=== PATIENT | female | born 1975 | race Caucasian/White ===

== ENCOUNTER 2018-07-22 22:18 | Emergency (ER) | payer SELFPAY ==
[2018-07-22 22:32] VITALS: BMI 23.4
--- NOTE | 2018-07-23 00:14 | PDOC ---
History of Present Illness - General History Source: Patient Exam Limitations: No Limitations - History of Present Illness Initial Comments: 07/23/18 01:32 The patient is a 43 year old female with no significant PMH of who presents to the emergency department with suprapubic pain for 1 week. The patient reports that her suprapubic pain has been constant. She states that she went to a clinic last week but did not get a thorough exam or a ultrasound secondary to not having medical coverage. The patient states that she also noted some vaginal bleeding for 5 days . she states that it began as spotting but has experienced heavy bleeding today. The patient states that her lmp was . She states taht she has 9 children and had a tubal ligation 4 years ago. The patient denies taking any pain medication. She states that she usually drinks herbal tea. The patient denies any other symptoms. She denies any fever, chills, nausea, vomiting, diarrhea, constipation, or urinary symptoms. She denies any chest pain, shortness of breath, headache or dizziness. The patient denies any other complaints. <Lonnie Haywood - Last Filed: 07/23/18 01:32> - General History Source: Patient Exam Limitations: No Limitations <Gwen Sharma - Last Filed: 07/23/18 03:20> - General Chief Complaint: Pain, Acute Stated Complaint: ABDOMINAL PAIN, CLOT FR VAGINAL Time Seen by Provider: 07/23/18 00:14 Past History <Lonnie Haywood - Last Filed: 07/23/18 01:32> - Past Medical History Cancer: No Cardiac Disorders: No CVA: No COPD: No CHF: No - Surgical History Cholecystectomy: No Gastric Stapling: No GI Surgery: No - Suicide/Smoking/Psychosocial Hx Smoking History: Never smoked Information on smoking cessation initiated: No Hx Alcohol Use: No Drug/Substance Use Hx: No <Gwen Sharma - Last Filed: 07/23/18 03:20> - Past Medical History Allergies/Adverse Reactions: Allergies Allergy/AdvReac Type Severity Reaction Status Date / Time No Known Allergies Allergy Verified 07/22/18 22:32 Review of Systems - Review of Systems Able to Perform ROS?: Yes Comments:: 07/23/18 01:32 GENERAL/CONSTITUTIONAL: No fever or chills. No weakness. HEAD, EYES, EARS, NOSE AND THROAT: No change in vision. No ear pain or discharge. No sore throat. CARDIOVASCULAR: No chest pain or shortness of breath. RESPIRATORY: No cough, wheezing, or hemoptysis. GASTROINTESTINAL: No nausea, vomiting, diarrhea or constipation. GENITOURINARY: No dysuria, frequency, or change in urination. MUSCULOSKELETAL: (+)suprapubic pain, vaginal bleeding. No joint or muscle swelling or pain. No neck or back pain. SKIN: No rash NEUROLOGIC: No headache, vertigo, loss of consciousness, or change in strength/ sensation. ENDOCRINE: No increased thirst. No abnormal weight change. HEMATOLOGIC/LYMPHATIC: No anemia, easy bleeding, or history of blood clots. ALLERGIC/IMMUNOLOGIC: No hives or skin allergy. <Lonnie Haywood - Last Filed: 07/23/18 01:32> *Physical Exam - Vital Signs Last Vital Signs Temp Pulse Resp BP Pulse Ox 98.5 F 70 20 168/87 5 L 07/22/18 22:28 07/22/18 22:28 07/22/18 22:28 07/22/18 22:28 07/22/18 22:28 - Physical Exam Comments: 07/23/18 01:32 GENERAL: The patient is in no acute distress. HEAD: Normal with no signs of trauma. EYES: PERRLA, EOMI, sclera anicteric, conjunctiva clear. ENT: Ears normal, nares patent, oropharynx clear without exudates. Moist mucous membranes. NECK: Normal range of motion, supple without lymphadenopathy, JVD, or masses. LUNGS: Breath sounds equal, clear to auscultation bilaterally. No wheezes, and no crackles. HEART:Regular rate and rhythm, normal S1 and S2 without murmur, rub or gallop. ABDOMEN: (+)LLQ and suprapubic pain and tenderness. Soft, normoactive bowel sounds. No guarding, no rebound. No masses palpable. EXTREMITIES: Normal range of motion, no edema. No clubbing or cyanosis. No erythema, or tenderness. NEUROLOGICAL: Cranial nerves II through XII grossly intact. Normal speech. No focal neurological deficits. MUSCULOSKELETAL: Back non-tender to palpation, no CVA tenderness SKIN: Warm, Dry, normal turgor, no rashes or lesions noted. <Lonnie Haywood - Last Filed: 07/23/18 01:32> - Vital Signs Last Vital Signs Temp Pulse Resp BP Pulse Ox 98.5 F 70 20 168/87 5 L 07/22/18 22:28 07/22/18 22:28 07/22/18 22:28 07/22/18 22:28 07/22/18 22:28 <Gwen Sharma - Last Filed: 07/23/18 03:20> ED Treatment Course - LABORATORY CBC & Chemistry Diagram: 07/23/18 01:00 07/23/18 01:00 <Gwen Sharma - Last Filed: 07/23/18 03:20> Medical Decision Making - Medical Decision Making Ms. Antony is a 43-year-old female presented to emergency department with a complaint of suprapubic pain. Symptoms have been present for the past 2 weeks. Her daughter saw that she passed a blood clot today. Patient and actually has been bleeding for the past 4 days. Her last normal menstrual period was June 22. Patient has not taken any medications for her symptoms No fevers or chills. No vomiting, nausea. Patient does not have a primary care physician or a [employer]. She was seen at the clinic several days ago where plan was to do an ultrasound. The could not do it because patient has no insurance Examination: Patient has suprapubic tenderness 07/23/18 02:18 Laboratory Tests 07/23/18 07/23/18 01:00 01:39 WBC 5.9 Hgb 9.3 L Hct 29.1 L Plt Count 318 Urine HCG, Qual Negative Ultrasound images: 4 mm endometrium. No ovarian pathology 07/23/18 02:25 Laboratory Tests 07/23/18 01:39 Urine Ketones Negative Urine Blood 2+ H Urine Nitrite Negative Urine WBC (Auto) <1 Urine RBC (Auto) 1 Urine HCG, Qual Negative 07/23/18 02:47 Laboratory Tests 07/23/18 01:00 Sodium 141 Potassium 3.5 Chloride 108 H Carbon Dioxide 25 BUN 9 Creatinine 0.6 Random Glucose 94 D/c to home Likely beginning of menses Clinical Impression: dysfunctional uterine bleeding, initial presentation <Gwen Sharma - Last Filed: 07/23/18 03:20> *DC/Admit/Observation/Transfer - Attestations Scribe Attestion: 07/23/18 01:32 Documentation prepared by Collisia Yobany, acting as registered medical assistant for Gwen Sharma MD. <Lonnie Haywood - Last Filed: 07/23/18 01:32> - Discharge Dispostion Decision to Admit order: No <Gwen Sharma - Last Filed: 07/23/18 03:20> Diagnosis at time of Disposition: Dysfunctional uterine bleeding, Pelvic pain - Discharge Dispostion Disposition: HOME Condition at time of disposition: Stable - Referrals Referrals: Mathew Rivas MD [Primary Care Provider] - Beverley Middleton MD [Staff Physician] - - Patient Instructions Printed Discharge Instructions: DI for Pelvic Pain Additional Instructions: Ms Antony Jennifer por venir a la chace de emergencias hoy Por favor, asegrese de seguir con el especialista en ginecologa Por favor tome Motrin o Naproxen para el dolor (over the counter). Regrese a la chace de emergencias por empeoramiento del dolor, cualquier otra inquietud o queja Thank you for coming in to the ER today Please be sure to follow up with the gynecology specialist Please take either Motrin or Naproxen for pain (over the counter). Return to the ER for worsening pain, any other concerns or complaints - Post Discharge Activity
[2018-07-23] MEDS ORDERED: ACETAMINOPHEN 325 MG TABLET (FP) PO ONE (00:21)
[2018-07-23] MEDS ORDERED: ACETAMINOPHEN 325 MG TABLET (FP) ONE (01:37)
[2018-07-23 01:56] LABS: BASO % 0.6 % (0-2.0); EOS % 1.7 % (0-4.5); HEMATOCRIT 29.1 % (32.4-45.2); HEMOGLOBIN 9.3 GM/dL (10.7-15.3); LYMPH % 30.1 % (8-40); MCH 24.6 pg (25.7-33.7); MCHC 31.9 g/dl (32.0-36.0); MEAN CELL VOLUME 77.2 fl (80-96); MEAN PLT VOLUME 7.6 fl (7.5-11.1); MONO % 7.5 % (3.8-10.2); NEUT % 60.1 % (42.8-82.8); PLATELET COUNT 318 K/MM3 (134-434); RBC 3.78 M/mm3 (3.60-5.2); RDW 16.8 % (11.6-15.6); WHITE BLOOD COUNT 5.9 K/mm3 (4.0-10.0)
[2018-07-23 02:12] LABS: URINE APPEARANCE CLEAR; URINE BILIRUBIN NEGATIVE (<2.0 mg/dL); URINE COLOR STRAW; URINE GLUCOSE (UA) NEGATIVE (NEGATIVE); URINE KETONE NEGATIVE (NEGATIVE); URINE LEUK ESTERASE NEGATIVE (NEGATIVE); URINE NITRITE NEGATIVE (NEGATIVE); URINE PROTEIN NEGATIVE (NEGATIVE); URINE UROBILINOGEN NEGATIVE mg/dL (0.2-1.0)
[2018-07-23 02:13] LABS: HCG,QUALITATIVE URINE Negative
[2018-07-23 02:19] LABS: EPI CELLS RARE /HPF (FEW)
[2018-07-23] MEDS ORDERED: IBUPROFEN 600 MG TABLET (FP) PO ONE ×2 (02:20→02:27)
[2018-07-23] MEDS ORDERED: METOCLOPRAMIDE HCL 10 MG TABLET (FP) PO ONE ×2 (02:21→02:27)
[2018-07-23 02:42] LABS: ALBUMIN 3.5 g/dl (3.4-5.0); ALK PHOS 97 U/L (45-117); ANION GAP 8 MMOL/L (8-16); BILIRUBIN,TOTAL 0.3 mg/dL (0.2-1); BLOOD UREA NITROGEN 9 mg/dL (7-18); CALCIUM 8.4 mg/dL (8.5-10.1); CHLORIDE 108 mmol/L (98-107); CO2 25 mmol/L (21-32); CREATININE 0.6 mg/dL (0.55-1.3); GLUCOSE,RANDOM 94 mg/dL (74-106); POTASSIUM 3.5 mmol/L (3.5-5.1); SGOT/AST 12 U/L (15-37); SGPT/ALT 25 U/L (13-61); SODIUM 141 mmol/L (136-145); TOT PROT 7.2 g/dl (6.4-8.2)
[2018-07-23 05:49] VITALS: BP 162/82; PULSE 78; TEMP 98.2
== END 2018-07-23 03:45 | disposition home or self-care (01) ==
LOC: JER 22:18
DX: N93.8 Other specified abnormal uterine and vaginal bleeding (principal); R10.2 Pelvic and perineal pain
CPT/HCPCS: 36415; 76830-TC; 80053; 81003; 81015; 84703; 85025; 87086; 99284-25

== ENCOUNTER 2018-11-13 23:31 | Emergency (ER) | payer SELFPAY ==
[2018-11-13 23:48] VITALS: BP 136/83; PULSE 67; TEMP 98.3; BMI 24.5
--- NOTE | 2018-11-14 00:58 | PDOC ---
History of Present Illness - General Chief Complaint: Pain, Acute Stated Complaint: DIZZY PAIN IN THE BACK OF HEAD LEFT ARM NUMB - History of Present Illness Initial Comments: The pt is a 43F w/ no reported PMH who presents for evaluation of STEWART and abdominal pain. She reports he STEWART as occipital, gradual onset, b/l, intermittent , with radiation down the posterior aspect of her R arm. She endorses associated RUE posterior paresthesia/weakness. She also endorses vertiginous dizziness. Denies having had this before. Denies vision changes, falls, LOC. She has not taken anything for her pain She reports 1.5 weeks of abdominal pain. Subrapubic, non-radiating, waxing/ waning, w/o dysuria/hematuria/vaginal d/c or bleeding. She was prescribed metronidizole last week for her symptoms but wants to be re-evaluated. She reports having multiple sexual partners and denies using barrier protection. Denies fevers/chills, chest pain, SOB, V/C/D. History taken w/ the assistance of a formal reading assistant. 11/14/18 02:23 Past History - Past Medical History Allergies/Adverse Reactions: Allergies Allergy/AdvReac Type Severity Reaction Status Date / Time No Known Allergies Allergy Verified 11/14/18 03:06 Home Medications: Ambulatory Orders NK [No Known Home Medication] 11/14/18 Cancer: No Cardiac Disorders: No CVA: No COPD: No CHF: No - Surgical History Cholecystectomy: No Gastric Stapling: No GI Surgery: No - Suicide/Smoking/Psychosocial Hx Smoking History: Never smoked Hx Alcohol Use: Yes (Social) Drug/Substance Use Hx: No Review of Systems - Review of Systems Able to Perform ROS?: Yes Comments:: GENERAL/CONSTITUTIONAL: No fever or chills HEAD, EYES, EARS, NOSE AND THROAT: No change in vision. No ear pain or discharge. No sore throat CARDIOVASCULAR: No chest pain or shortness of breath RESPIRATORY: Denies cough, hemoptysis GASTROINTESTINAL: No vomiting, diarrhea or constipation GENITOURINARY: No dysuria, frequency, or change in urination MUSCULOSKELETAL: per HPI SKIN: No rash NEUROLOGIC: No headache, vertigo, loss of consciousness, or change in strength/ sensation ENDOCRINE: No increased thirst. No abnormal weight change HEMATOLOGIC/LYMPHATIC: No anemia, easy bleeding, or history of blood clots ALLERGIC/IMMUNOLOGIC: No hives or skin allergy 11/14/18 00:56 Is the patient limited [place] proficient: No *Physical Exam - Vital Signs Last Vital Signs Temp Pulse Resp BP Pulse Ox 98.3 F 67 18 136/83 99 11/13/18 23:39 02 23:39 11/13/18 23:39 11/13/18 23:39 11/13/18 23:39 - Physical Exam Comments: GENERAL: Awake, alert, and fully oriented, in no acute distress HEAD: No signs of trauma, normocephalic, atraumatic EYES: PERRLA, EOMI, sclera anicteric, conjunctiva clear ENT: Hearing grossly normal, nares patent, oropharynx clear without exudates. Moist mucosa LUNGS: No distress, speaks full sentences, clear to auscultation bilaterally HEART: Regular rate and rhythm, normal S1 and S2, no murmurs appreciated, peripheral pulses normal and equal bilaterally ABDOMEN: Soft, nontender, normoactive bowel sounds. No guarding, no rebound MSK: R C3 transverse process rotated to the right (posteriorly); Elevated R 1st rib; R compressed OA w/ point tenderness reproducing chief complaint EXTREMITIES : Normal inspection, Normal range of motion, no edema. No clubbing or cyanosis NEUROLOGICAL: Cranial nerves II through XII grossly intact. Normal speech, normal gait, no focal sensorimotor deficits SKIN: Warm, Dry PELVIC External genitalia unremarkable Speculum exam with normal appearing whitish vaginal discharge Vaginal wall mucosa is unremarkable Cervix visualized and is unremarkable Bimanual exam without cervical motion tenderness, adnexal tenderness or any masses appreciated 11/14/18 00:57 Moderate Sedation - Procedure Monitoring Vital Signs: Procedure Monitoring Vital Signs Temperature 98.3 F 11/13/18 23:39 Pulse Rate 67 11/13/18 23:39 Respiratory Rate 18 11/13/18 23:39 Blood Pressure 136/83 11/13/18 23:39 O2 Sat by Pulse Oximetry (%) 99 11/13/18 23:39 ED Treatment Course - LABORATORY CBC & Chemistry Diagram: 11/14/18 02:30 11/14/18 02:30 Medical Decision Making - Medical Decision Making The pt is a 43F w/ no reported PMH who presents for evaluation of STEWART w/ RUE paresthesias and 1.5 weeks of lower abdominal pain (on Metronidazole) ED Course CMP, CBC, UA, GC/chlamydia CT Head w/o CTA head and neck 1L NS 11/14/18 02:24 Lytes wnl No anemia No leukocytosis GC/chlamydia pending CT head/neck w/o evidence of hemorrhage, dissection, or aneurysm STEWART/abdominal pain improved Plan for D/C w/ PCP f/u Discharge instructions and return precautions given Patient in agreement and verbalized understanding Dispo: home 11/14/18 06:23 *DC/Admit/Observation/Transfer Diagnosis at time of Disposition: Dizziness Headache Qualifiers: Headache type: tension-type Headache chronicity pattern: acute headache Intractability: not intractable Qualified Code(s): G44.209 - Tension-type headache, unspecified, not intractable Abdominal pain Qualifiers: Abdominal location: lower abdomen, unspecified Qualified Code(s): R10.30 - Lower abdominal pain, unspecified - Discharge Dispostion Disposition: HOME Condition at time of disposition: Stable Decision to Admit order: No - Referrals Referrals: [facility] [place] [Provider Group] - Patient Instructions Printed Discharge Instructions: DI for Hormonal and Tension Headaches Additional Instructions: You were seen in the Emergency Department for evaluation of headache, arm pain, and abdominal pain. Your imaging studies were normal. Review the handout provided at discharge. Follow up with your primary care provider within the next 3-5 days. For your pain, you may take Tylenol up to 1000mg four times per day and/or Ibuprofen up to 600mg three times per day. Return to the Emergency Department if you develop fevers/chill, worsening symptoms, vision changes, chest pain, or new/concerning symptoms. Se lo atendi en el Departamento de Emergencias para evaluar el dolor de cecilia , el dolor en el brazo y el dolor abdominal. Kaci estudios de imagen fueron normales. Revise el folleto provisto al momento del olu. Venu un seguimiento con sandoval proveedor de atencin primaria en los prximos 3 a 5 gonzalez. Para sandoval dolor, puede silvana Tylenol hasta 1000 mg cuatro veces por da y / o Ibuprofeno hasta 600 mg rosalino veces por da. Regrese al Departamento de Emergencias si desarrolla fiebre / escalofros, empeoramiento de los sntomas, cambios en la visin, dolor en el pecho o sntomas nuevos o relacionados con ellos. Print Language: SERBIAN - Post Discharge Activity
[2018-11-14] MEDS ORDERED: diphenhydrAMINE HCL 25 MG CAPSULE (FP) PO ONE ×2 (02:30→03:03)
[2018-11-14] MEDS ORDERED: MECLIZINE HCL 25 MG TABLET (FP) PO ONE (02:30)
[2018-11-14] MEDS ORDERED: ACETAMINOPHEN 325 MG TABLET (FP) PO ONE (02:30)
[2018-11-14 02:43] LABS: HEMATOCRIT 30.1 % (32.4-45.2); HEMOGLOBIN 10.4 GM/dL (10.7-15.3); MCH 29.5 pg (25.7-33.7); MCHC 34.6 g/dl (32.0-36.0); MEAN CELL VOLUME 85.1 fl (80-96); MEAN PLT VOLUME 8.1 fl (7.5-11.1); PLATELET COUNT 236 K/MM3 (134-434); RBC 3.54 M/mm3 (3.60-5.2); RDW 15.8 % (11.6-15.6); WHITE BLOOD COUNT 5.8 K/mm3 (4.0-10.0)
--- NOTE | 2018-11-14 02:55 | PDOC ---
Attending Attestation - Resident Resident Name: Balta Meyers - ED Attending Attestation I have performed the following: I have examined & evaluated the patient, The case was reviewed & discussed with the resident, I agree w/resident's findings & plan - HPI HPI: 11/14/18 02:53 43-year-old female with multiple complaints including posterior headache radiating into the neck with subjective weakness of the right arm as well as lower abdominal/pelvic discomfort. Patient was given antibiotics and told she had a pelvic infection. Outside the presence of her family she admits to an extramarital affair and increased stress which may be contributing to her symptoms today. She does not describe the headache is the worst headache of her life. It was gradual in onset. There is no associated fever or neck stiffness. The abdominal/pelvic pain is described as cramping. She denies change in vaginal discharge or urinary symptoms. - Physicial Exam PE: 11/14/18 02:54 GENERAL: Awake, in no acute distress HEAD: No signs of trauma EYES: ENT:clear without exudates. Moist mucosa NECK: Normal ROM, LUNGS:. Normal work of breathing. HEART: Regular rate and rhythm, ABDOMEN: Soft, nondistended CHEST WALL: BACK: No midline tenderness. EXTREMITIES:. No erythema, or tenderness NEUROLOGICAL: Alert, SKIN: Warm, Dry - Medical Decision Making 11/14/18 02:54 43-year-old female with multiple complaints Plan for CTA of the head and neck to rule out vascular pathology Repeat pelvic exam with cultures Labs Reevaluation pending 11/14/18 05:06 On reevaluation patient's complaints involving the neck and upper extremity were reproduced during osteopathic exam OA decompression techniques were performed with some improvement Patient feeling better CT scans of the head and neck show no acute abnormality Based on exam and history there is no indication for lumbar puncture at this time as it would present more potential harm then diagnostic benefit Patient states she's feeling better and agrees with discharge home
[2018-11-14] MEDS ORDERED: SODIUM CHLORIDE 0.9% 500 ML INFUS.BAG IV ONE (02:59)
[2018-11-14 03:02] LABS: ALBUMIN 3.4 g/dl (3.4-5.0); ALK PHOS 109 U/L (45-117); ANION GAP 7 MMOL/L (8-16); BILIRUBIN,TOTAL 0.2 mg/dL (0.2-1); BLOOD UREA NITROGEN 14 mg/dL (7-18); CALCIUM 8.3 mg/dL (8.5-10.1); CHLORIDE 106 mmol/L (98-107); CO2 26 mmol/L (21-32); CREATININE 0.6 mg/dL (0.55-1.3); GLUCOSE,RANDOM 98 mg/dL (74-106); LIPASE 227 U/L (73-393); POTASSIUM 3.6 mmol/L (3.5-5.1); SGOT/AST 13 U/L (15-37); SGPT/ALT 20 U/L (13-61); SODIUM 139 mmol/L (136-145); TOT PROT 6.9 g/dl (6.4-8.2)
[2018-11-14] MEDS ORDERED: ACETAMINOPHEN 325 MG TABLET (FP) ONE (03:02)
[2018-11-14] MEDS ORDERED: MECLIZINE HCL 25 MG TABLET (FP) ONE (03:03)
[2018-11-14 03:15] LABS: HCG,QUALITATIVE URINE Negative
[2018-11-14 04:02] LABS: URINE APPEARANCE CLEAR; URINE BILIRUBIN NEGATIVE (<2.0 mg/dL); URINE COLOR STRAW; URINE GLUCOSE (UA) NEGATIVE (NEGATIVE); URINE KETONE NEGATIVE (NEGATIVE); URINE LEUK ESTERASE NEGATIVE (NEGATIVE); URINE NITRITE NEGATIVE (NEGATIVE); URINE PROTEIN NEGATIVE (NEGATIVE); URINE UROBILINOGEN NEGATIVE mg/dL (0.2-1.0)
[2018-11-14 04:17] LABS: EPI CELLS RARE /HPF (FEW)
--- NOTE | 2018-11-14 13:21 | EKG ---
Test Reason : Blood Pressure : / mmHG Vent. Rate : 069 BPM Atrial Rate : 069 BPM P-R Int : 182 ms QRS Dur : 104 ms QT Int : 402 ms P-R-T Axes : 020 080 039 degrees QTc Int : 430 ms NORMAL SINUS RHYTHM INCOMPLETE RIGHT BUNDLE BRANCH BLOCK BORDERLINE ECG NO PREVIOUS ECGS AVAILABLE Confirmed by ROSA RITCHIE MD ([id number]) on 11/14/2018 1:21:12 PM Referred By: Confirmed By:ROSA RITCHIE MD
== END 2018-11-14 05:08 | disposition home or self-care (01) ==
LOC: JER 23:31
DX: G44.209 Tension-type headache, unspecified, not intractable (principal); R42 Dizziness and giddiness; R10.30 Lower abdominal pain, unspecified
CPT/HCPCS: 36415; 70496-TC; 70498-TC; 80053; 81003; 81015; 83690; 84703; 85027; 87086; 87491; 87591; 93005; 93010; 99284-25